=== PATIENT | male | born 1960 | race Caucasian/White ===

== ENCOUNTER 2025-03-17 10:49 | Outpatient (CLI) | payer BC, SELFPAY ==
--- NOTE | ~2025-03-17 | US_ITS ---
EXAMINATION: US venous doppler LE DATE: 03/17/2025 11:26 INDICATION: Localized pain and swelling of the right lower limb. TECHNIQUE: Grayscale ultrasound images without and with compression and Doppler ultrasound images of the right lower extremity veins were obtained. COMPARISON: None. FINDINGS: Deep venous thrombosis beginning in the distal right femoral vein and extending through the right pop liteal vein, gastrocnemius vein and peroneal veins at the calf. The visualized portions of right comm on femoral vein, profunda (deep) femoral vein, proximal to mid femoral vein, posterior tibial veins and greater saphenous vein outflow are patent. IMPRESSION: 1. No deep venous thrombosis in the right lower limb extending from the distal femoral vein through the popliteal vein to the gastrocnemius and peroneal veins at the calf. Dr. Wang discussed these findings with Dr. Chavarria at 11:38 AM. Reviewed, dictated and finalized at location A. IMPRESSION: 1. No deep venous thrombosis in the right lower limb extending from the distal femoral vein through the popliteal vein to the gastrocnemius and peroneal vein s at the calf. Dr. Wang discussed these findings with Dr. Chavarria at 11:38 AM .
== END 2025-03-17 10:50 | disposition home or self-care (01) ==
LOC: MICIMG 10:50
PROVIDERS: PCP Family Medicine; Visit Provider Family Medicine
DX: I82.411 Acute embolism and thrombosis of right femoral vein (principal); I82.431 Acute embolism and thrombosis of right popliteal vein; I82.451 Acute embolism and thrombosis of right peroneal vein
CPT/HCPCS: 93971

== ENCOUNTER 2025-07-12 10:28 | Outpatient (CLI) | payer BC, SELFPAY ==
--- NOTE | ~2025-07-12 | US_ITS ---
US venous doppler LE RT - 07/12/2025 11:04 CDT History: 65 years old Male with right lower extremity pain and swelling. Real-time sonographic images of the right lower extremity venous system were obtained. Color Doppler sonography and spectral waveform analysis were performed. No prior studies for comparison. The right sapheno-femoral junctions are patent. The right common femoral, superficial femoral, popl iteal and posterior tibial veins are compressible and without evidence of echogenic thrombus. Impression: No evidence of deep venous thrombosis Reviewed, dictated and finalized at location A. Impression: No evidence of deep venous thrombosis
== END 2025-07-12 10:29 | disposition home or self-care (01) ==
LOC: MICIMG 10:29
PROVIDERS: PCP Family Medicine; Visit Provider Family Medicine
DX: R22.41 Localized swelling, mass and lump, right lower limb (principal)
CPT/HCPCS: 93971